=== PATIENT | female | born 1985 | race African-American/Black ===

== ENCOUNTER 2023-03-10 21:50 | Emergency (ER) | payer OTHER ==
[2023-03-10 23:26] LABS: Bilirubin Negative (Negative); Blood, Urine Negative (Negative); Clarity Clear (Clear); Glucose, Urine (Dipstick) Negative (Negative); Ketone, Urine 15 mg/dL (Negative); Leukocyte Negative (Negative); Nitrite Negative (Negative); Protein, Urine (Dipstick) Negative (Neg-Trace); Specific Gravity, Urine 1.015 (1.005-1.030); Urobilinogen 0.2 mg/dL (Less than 2)
[2023-03-10 23:29] LABS: CAUTI Indications for Culture Dysuria,urgency,freq; RBC/HPF None Seen HPF (0-3); Squamous Epithelial 0-3 HPF (0-3); WBC/HPF None Seen HPF (0-3); Yeast-Budding Rare HPF (None Seen)
[2023-03-10 23:30] LABS: Urine Culture Reflex No No
[2023-03-10] MEDS ORDERED: Acetaminophen 500 MG TAB ONE (23:57)
== END 2023-03-11 00:20 | disposition home or self-care (01) ==
LOC: MADERS 21:50
DX: S16.1XXA Strain of muscle, fascia and tendon at neck level, initial encounter (principal); M25.552 Pain in left hip; V89.2XXA Person injured in unspecified motor-vehicle accident, traffic, initial encounter
CPT/HCPCS: 70450; 72125; 81001